=== PATIENT | female | born 1960 | race African-American/Black ===

== ENCOUNTER 2016-07-10 12:40 | Emergency (ER) ==
[2016-07-10 12:51] VITALS: BP 117/69
--- NOTE | 2016-07-10 13:32 | PROVIDER DOCUMENTATION ---
HPI-General Adult - General Source: patient - History of Present Illness -Gen Adult Nature of Presenting Problems: patient is a 55 y/o F that presents to the ER with 6 days of weakness, aching, and runny nose. She has had 2 episodes of diarrhea and vomiting during that time. pt ran out of xanax early and her pcp wouldn't place her back on. Location of Pain/Injury: reports: generalized Quality of Pain: reports: aching Severity: reports: mild Onset/Duration: reports: gradual, 6 days ago Timing: reports: still present, constant Context/Activities at Onset: reports: other (out of xanax( ran out early)) Modifying Factors: improves with: nothing Associated Symptoms: reports: diarrhea, fatigue, malaise, muscle aches, nausea, vomiting, weakness. denies: cough, fever/chills, genitourinary problems Similar Symptoms Previously?: No Recently seen or treated by another doctor?: Yes <Nitesh Laboy - Last Filed: 07/10/16 13:47> <Cici Levi - Last Filed: 07/10/16 14:56> - General Chief Complaint: Cold Symptoms Stated Complaint: N/V/D Time Seen by Provider: 07/10/16 13:32 Allergies/Adverse Reactions: Patient Allergies Allergy/AdvReac Type Severity Reaction Status Date / Time No Known Allergies Allergy Verified 09/13/15 16:36 Home Medications: Home Medication List Medication Instructions Recorded Confirmed Last Taken Type Acyclovir [Zovirax] 800 mg PO BID 02/13/14 02/13/14 02/13/14 07:00 History Albuterol Sulfate Inhaler 2 puff INH Q6H PRN PRN 02/13/14 02/13/14 02/05/14 20: 00 History [Ventolin Hfa] Amoxicillin/Potassium Clav 1 each PO BID #14 tablet 02/13/14 Unknown Rx [Augmentin 875-125 Tablet] Bisoprolol/Hctz [Ziac 10/6.25 mg] 1 each PO DAILY 02/13/14 02/13/14 02/13/14 07: 00 History Clopidogrel Bisulfate [Plavix] 75 mg PO DAILY 02/13/14 02/13/14 02/13/14 07:00 History Gabapentin [Neurontin] 600 mg PO BID 02/13/14 02/13/14 02/13/14 07:00 History Hydrocodone/APAP 10 mg/325 mg 1 each PO TID 02/13/14 02/13/14 Unknown History [[place]-10] Ramipril [Altace] 1.25 mg PO DAILY 02/13/14 02/13/14 02/13/14 07:00 History SIMVAstatin [Zocor] 40 mg PO DAILY 02/13/14 02/13/14 02/13/14 07:00 History Sitagliptin Phos/Metformin HCl 1 each PO DAILY 02/13/14 02/13/14 02/13/14 07:00 History [Janumet 50-500 mg Tablet] Tizanidine HCl [Zanaflex] 4 mg PO TID 02/13/14 02/13/14 02/13/14 07:00 History Azithromycin [Zithromax Z-Hugo] 250 mg PO DIRECTED #1 pkg 09/13/15 Unknown Rx Benzonatate [Tessalon] 100 mg PO TID PRN PRN #20 capsule 09/13/15 Unknown Rx Potassium Chloride [K-Tab ER] 20 meq PO DAILY #4 tablet.er 07/10/16 Unknown Rx Review of Systems - Adult - REVIEW OF SYSTEMS - ADULT Constitutional: denies: chills, fever, fatique Eyes: reports: no symptoms reported Ears, Nose, Mouth & Throat: reports: sinus problem. denies: ear pain, throat pain, throat swelling Cardiovascular: denies: chest pain, palpitations, syncope Respiratory: denies: cough, shortness of breath, wheezing Gastrointestinal: reports: diarrhea, nausea, vomiting Genitourinary: reports: no symptoms reported Musculoskeletal: reports: muscle aches, muscle weakness. denies: back pain, joint pain, neck pain Integumentary: reports: no symptoms reported Neurological: reports: no symptoms reported Psychiatric: reports: no symptoms reported Endocrine: reports: no symptoms reported Hematologic/Lymphatic: reports: no symptoms reported Allergic/Immunologic: reports: no symptoms reported All Other Systems: Reviewed and Negative <Nitesh Laboy - Last Filed: 07/10/16 13:47> Past History - Adult - PAST MEDICAL HISTORY-ADULT Review of Records: reports: Old Records Reviewed, Nursing Assessment Review, Medications Reviewed Cardiovascular: reports: HTN, hyperlipidemia Respiratory: reports: asthma Endocrine/Immune: reports: Diabetes Other Conditions: reports: other (shingles) - PRIOR SURGERIES/PROCEDURES Surgical/Procedure History: reports: hysterectomy - IMMUNIZATION STATUS Childhood Immunizations: See Nurse Assessment Flu Vaccine: See Nurse Assessment - FAMILY HISTORY Family History: reviewed, not pertinent - SOCIAL HISTORY Smoking: cigarettes, less than 1 pack/day Living Situation: family <Nitesh Laboy - Last Filed: 07/10/16 13:47> - PAST MEDICAL HISTORY-ADULT Major Childhood Illnesses: reports: denies history Cardiovascular: reports: HTN, hyperlipidemia Respiratory: reports: asthma Gastrointestinal: reports: denies history Obstetrical/Gynecological: reports: denies history Genitourinary: reports: denies history Musculoskeletal: reports: denies history Neurological: reports: headaches/migraines Endocrine/Immune: reports: Diabetes Other Conditions: reports: denies history - PRIOR SURGERIES/PROCEDURES Surgical/Procedure History: reports: hysterectomy - PRIOR HOSPITALIZATIONS Prior Hospitalizations: reports: none - IMMUNIZATION STATUS Childhood Immunizations: UTD Flu Vaccine: See Nurse Assessment - FAMILY HISTORY Family History: reviewed, not pertinent <Cici Levi - Last Filed: 07/10/16 14:56> Physical Exam-General - PHYSICAL EXAM-ADULT Initial Vital Signs Reviewed: Yes - CONSTITUTIONAL General Appearance: appears well, alert, no apparent distress - EYES Eyes: PERRL/EOMI, pink conjunctivae - HEAD, EARS, NOSE, MOUTH & THROAT HENMT: normocephalic/atraumatic, moist mucous membranes, TMs normal, pharynx normal. negative: frontal tenderness, maxillary tenderness - NECK Neck: non-tender, full range of motion, supple. negative: lymphadenopathy - RESPIRATORY Respiratory: chest non-tender, lungs clear, normal breath sounds - CARDIOVASCULAR Cardiovascular: regular rate, rhythm, no edema - GASTROINTESTINAL (ABDOMEN) Abdominal Exam: normal bowel sounds, non tender, soft. negative: distended, guarding, rigid, rebound, tenderness, hernia, mass - MUSCULOSKELETAL Back Exam: normal inspection, no CVA tenderness, no vertebral tenderness Extremity: normal gait, normal inspection Peripheral Pulses: dorsalis-pedis (R): 2+, dorsalis-pedis (L): 2+ - SKIN Integumentary: normal color, normal turgor, warm/dry. negative: rash - NEUROLOGIC Neurologic: grossly normal, no motor/sensory deficits - PSYCHIATRIC Psych/Mental Status: normal thought content, normal thought process <Thiot,Cici M. - Last Filed: 07/10/16 14:56> Progress - PLAN OF CARE/RESULTS Progress/Plan/Lab Results: Vital Signs Temp Pulse Resp BP Pulse Ox 07/10/16 12:44 98.2 F 83 18 117/69 99 No Known Allergies Allergy (Verified 09/13/15 16:36) Acyclovir [Zovirax] 800 mg PO BID 02/13/14 Albuterol Sulfate Inhaler [Ventolin Hfa] 2 puff INH Q6H PRN PRN 02/13/14 Amoxicillin/Potassium Clav [Augmentin 875-125 Tablet] 1 each PO BID #14 tablet 02/13/14 Bisoprolol/Hctz [Ziac 10/6.25 mg] 1 each PO DAILY 02/13/14 Clopidogrel Bisulfate [Plavix] 75 mg PO DAILY 02/13/14 Gabapentin [Neurontin] 600 mg PO BID 02/13/14 Hydrocodone/APAP 10 mg/325 mg [[place]-10] 1 each PO TID 02/13/14 Ramipril [Altace] 1.25 mg PO DAILY 02/13/14 SIMVAstatin [Zocor] 40 mg PO DAILY 02/13/14 Sitagliptin Phos/Metformin HCl [Janumet 50-500 mg Tablet] 1 each PO DAILY Tizanidine HCl [Zanaflex] 4 mg PO TID 02/13/14 Azithromycin [Zithromax Z-Hugo] 250 mg PO DIRECTED #1 pkg 09/13/15 Benzonatate [Tessalon] 100 mg PO TID PRN PRN #20 capsule 09/13/15 Laboratory 07/10/16 07/10/16 13:57 13:57 WBC 12.91 H RBC 4.38 Hgb 11.3 L Hct 35.0 L MCV 79.9 L MCH 25.8 L MCHC 32.3 L RDW Std Deviation 13.4 Plt Count 346 MPV 9.1 Immature Gran % (Auto) 0.2 Neut % (Auto) 66.1 Lymph % (Auto) 24.1 [place] % (Auto) 7.2 Eos % (Auto) 2.0 Baso % (Auto) 0.4 Immature Gran # (Auto) 0.03 Neut # (Auto) 8.53 H Lymph # (Auto) 3.11 [place] # (Auto) 0.93 H Eos # (Auto) 0.26 Baso # (Auto) 0.05 Sodium 126 L Potassium 2.9 L Chloride 84 L Carbon Dioxide 28 Anion Gap 14 BUN 6 L Creatinine 0.9 Estimated GFR/1.73 m2 > 60 BUN/Creatinine Ratio 7 Glucose 77 Calculated Osmolality 250 Calcium 9.4 Total Bilirubin 0.20 AST 13 ALT 6 L Alkaline Phosphatase 86 Total Protein 7.3 Albumin 4.4 Globulin 3.0 Albumin/Globulin Ratio 2.0 Orders Category Date Time Status Saline Loc NOW Care 07/10/16 13:44 Active CBC WITH ELECTRONIC DIFF [HEME] Stat Lab 07/10/16 13:57 Completed CMP [COMPREHENSIVE METABOLIC PANEL] [CHEM] Stat Lab 07/10/16 13:57 Completed 0.9% Sodium Chloride Inj [Ns] 1,000 ml Med 07/10/16 13:44 Discontinued IV 999 mls/hr Offered admission for hypokalemia and hyponatremia but pt refuses, will f/u with PCP as needed. <Cici Levi - Last Filed: 07/10/16 14:56> Departure <Nitesh Laboy - Last Filed: 07/10/16 13:47> - Departure Time of Disposition Order: 14:54 Certified Medical Emergency: Emergent <Cici Levi - Last Filed: 07/10/16 14:56> - Departure DIAGNOSIS: Hyponatremia, Hypokalemia Disposition: HOME 01 Condition: Good Additional Instructions: ED Follow Up Instructions: You have been treated by a care provider in the Emergency Department. These instructions are being provided to you so you can have an understanding of how to care for yourself upon discharge. Upon discharge from the Emergency Department, you are responsible for making arrangements for follow-up care by a physician of your choice. Take all prescribed medications as directed. Return to the Emergency Department immediately for any new or worsening symptoms. You may call the Physician Referral phone number at [phone] to obtain a list of Physicians who are taking new patients. Prescriptions: Potassium Chloride [K-Tab ER] 20 meq PO DAILY #4 tablet.er Attestation - Scribe Verification/Attestation Scribe:: Nitesh Laboy Acting as Scribe for:: Cici Levi Scribe documention review:: This chart was documented by a scribe and accurately reflects the service the provider performed and the decisions made by the provider. - Physician/ KENDRICK Attestation Patient care was provided by Advanced Practice Provider:: Yes Advanced Practice Provider:: Cici Levi Advanced Practice Provider documentation review:: The Mid-level provider documentation, treatment plan and medical decision making was reviewed by the physician who agrees with all treatment and medical decision making by the [facility]. <Nitesh Laboy - Last Filed: 07/10/16 13:47> - Physician/ KENDRICK Attestation Patient care was provided by Advanced Practice Provider:: Yes Advanced Practice Provider:: Cici Levi Advanced Practice Provider documentation review:: The Mid-level provider documentation, treatment plan and medical decision making was reviewed by the physician who agrees with all treatment and medical decision making by the [facility]. <Cici Levi - Last Filed: 07/10/16 14:56> Physician Attestation - Physician Attestation I, the provider, attest to the following statement:: Cici Levi Physician documentation Attestation:: This documentation recorded by the scribe accurately reflects the service I personally performed and the decisions made by me. <Nitesh Laboy - Last Filed: 07/10/16 13:47> - Physician Attestation I, the provider, attest to the following statement:: Cici Levi Physician documentation Attestation:: This documentation recorded by the scribe accurately reflects the service I personally performed and the decisions made by me. <Cici Levi - Last Filed: 07/10/16 14:56>
[2016-07-10] MEDS ORDERED: NS 1,000 ML IV ONE (13:44)
[2016-07-10 14:08] LABS: MANUAL DIFF NEEDED? NO
[2016-07-10 14:10] LABS: BASO% 0.4 % (0.0-0.8); EOS# 0.26 X1000 (0.0-0.7); HEMOGLOBIN 11.3 g/dL (12.0-16.0); IMM GRAN# 0.03 X1000 (0.0-0.04); IMM GRAN% 0.2 % (0.0-0.5); LYMPH# 3.11 X1000 (1.2-3.4); LYMPH% 24.1 % (20.5-51.1); MCH 25.8 PG (27-31); MCHC 32.3 g/dL (33-37); MCV 79.9 FL (81-99); MONO# 0.93 X1000 (0.11-0.59); MONO% 7.2 % (1.7-9.3); MPV 9.1 FL (7.4-10.4); NEUT% 66.1 % (42.2-75.2); PLT 346 X1000 (130-400); RBC 4.38 XMIL (4.2-5.4)
[2016-07-10 14:23] LABS: AGAP 14; ALBUMIN 4.4 g/dL (3.5-5.0); ALKALINE PHOSPHATASE 86 U/L (32-104); BUN 6 mg/dL (8-22); CALCIUM 9.4 mg/dL (8.8-10.2); CHLORIDE 84 mmol/L (98-107); COSMO 250; GOT 13 U/L (10-30); GPT 6 U/L (10-36); POTASSIUM 2.9 mmol/L (3.5-5.1); SODIUM 126 mmol/L (136-145); TCO2 28 mmol/L (25-35); TOTAL PROTEIN 7.3 g/dL (6.3-8.3)
[2016-07-10] MEDS ORDERED: KLOR-CON PO ONE (14:54)
== END 2016-07-10 15:12 | disposition home or self-care (01) ==
LOC: P.ED 12:40
DX: E87.1 Hypo-osmolality and hyponatremia (principal); E87.6 Hypokalemia; M62.81 Muscle weakness (generalized); R09.89 Other specified symptoms and signs involving the circulatory and respiratory systems; R19.7 Diarrhea, unspecified; R11.2 Nausea with vomiting, unspecified; R53.83 Other fatigue; R53.81 Other malaise; M79.1 Myalgia; I10 Essential (primary) hypertension; E78.5 Hyperlipidemia, unspecified; J45.909 Unspecified asthma, uncomplicated; E11.9 Type 2 diabetes mellitus without complications; F17.210 Nicotine dependence, cigarettes, uncomplicated
CPT/HCPCS: 80053; 85025; 96360; J7030